=== PATIENT | female | born 1980 ===

== ENCOUNTER → 2024-12-17 10:48 | Outpatient (CLI) | payer OTHER | END | disposition home or self-care (01) | LOC: LAB 10:48 | PROVIDERS: ATTEND Obstetrics & Gynecology | DX: N91.2 Amenorrhea, unspecified (principal) ==

== ENCOUNTER 2024-12-22 05:25 | Day surgery (SDC) | payer OTHER ==
[2024-11-25 09:15] VITALS: BP 115/77
[2024-11-25 10:12] LABS: PH,URINE 5.5 (5.0-8.0); URINE APPEARANCE Clear; URINE BACTERIA 9.7 uL (0.0-1933); URINE BILIRRUBIN Negative (NEGATIVE); URINE BLOOD Moderate; URINE COLOR Yellow; URINE EPITHELIAL CELLS 2.6 uL (0.0-38.8); URINE GLUCOSE Negative (NEGATIVE); URINE KETONE Trace (NEGATIVE); URINE LEUKOCYTE Negative; URINE NITRATE Negative; URINE PROTEIN Negative (NEGATIVE); URINE RBC 30.9 uL (0.0-20.8); URINE UROBILINOGEN 0.2 E.U./dl; URINE WBC 2.2 uL (0.0-23.2)
[2024-11-25 10:14] LABS: INR < 0.93; PARTIAL THROMBOPLASTIN TIME 26.8 SECONDS (22.0-34.0); PROTHROMBIN TIME 10.1 SECONDS (9.0-11.5)
[2024-11-25 10:21] LABS: URINE CAST 0.14 uL (0.0-1.40)
[2024-11-25 10:23] LABS: ALBUMIN 3.9 gm/dL (3.4-5.0); BILIRUBIN TOTAL 0.49 mg/dL (0.3-1.2); CALCIUM 9.1 mg/dL (8.5-10.1); CREATININE SERUM 0.85 mg/dL (0.55-1.02); GLOBULINA 3.7 G/DL (2.4-3.5); POTASSIUM 4.14 mEq/L (3.5-5.1); TOTAL PROTEIN 7.6 gm/dL (6.4-8.2)
[2024-11-25 10:26] LABS: EOS % 1.2 % (0.7-7.0); HEMATOCRIT 43.8 % (34.1-44.9); HEMOGLOBIN 14.9 g/dL (11.2-15.7); LYMPH % 17.1 % (19.3-53.1); MEAN CORPUSCULAR HEMOGLOBIN 31.6 pg (25.6-32.2); MONO % 5.1 % (4.7-12.5); NEUT % 75.8 % (34.0-71.1); PLATELET COUNT 403 K/uL (163-369); RED BLOOD COUNT 4.71 M/uL (3.93-5.22); RED CELL DISTRIBUTION WIDTH 13.4 % (11.6-14.4)
[2024-11-25 10:27] LABS: BASO % 0.4 % (0.1-1.2); EOS # 0.11 (0.04-0.54); LYMPH # 1.61 (1.18-3.74); MONO # 0.48 (0.24-0.82); NEUT # 7.15 (1.56-6.13)
[~2024-12-22] VITALS: Ht 160 cm; Wt 59.4 kg
[2024-12-22] MEDS ORDERED: POVIDONE-IODINE 118 ML BOTT TOP ONE (10:51)
[2024-12-22] MEDS ORDERED: ONDANSETRON HCL 2 MG/ML VIAL IV ONE (12:45)
[2024-12-22] MEDS ORDERED: KETOROLAC TROMETHAMINE 30 MG VIAL IV ONE (12:45)
[2024-12-22] MEDS ORDERED: ONDANSETRON HCL 2 MG/ML VIAL ONE (14:28)
[2024-12-22] MEDS ORDERED: KETOROLAC TROMETHAMINE 30 MG VIAL ONE (14:28)
== END 2024-12-22 16:05 | disposition home or self-care (01) ==
LOC: CIR.AMB 05:25
PROVIDERS: ATTEND Obstetrics & Gynecology
DX: N84.0 Polyp of corpus uteri (principal); N95.0 Postmenopausal bleeding